=== PATIENT | male | born 1985 | race Caucasian/White ===

== ENCOUNTER → 2019-12-31 | Outpatient (CLI) | payer MEDICAID ==
[~2019-12-31] MED LIST: HYDR-826 PO; LEVO150T5 PO
[2019-12-31 09:32] LABS: BASOPHILS # (AUTO) 0.04 x10^3/uL (0-0.1); BASOPHILS % (AUTO) 1 % (0-1); EOSINOPHILS # (AUTO) 0.69 x10^3/uL (0-0.4); EOSINOPHILS % (AUTO) 9 % (1-7); LYMPHOCYTES % (AUTO) 22 % (22-44); MD NO; MEAN CORPUSCULAR HEMOGLOBIN 30.7 pg (27.5-34.5); MEAN CORPUSCULAR HGB CONC 32.9 g/dL (33.2-36.2); MEAN CORPUSCULAR VOLUME 93.3 fL (81-97); MONOCYTES # (AUTO) 0.47 x10^3/uL (0.2-0.8); MONOCYTES % (AUTO) 6 % (2-9); NEUTROPHILS # (AUTO) 4.56 x10^3/uL (1.8-6.8); NEUTROPHILS % (AUTO) 62 % (42-75); PLATELET COUNT 228 x10^3/uL (130-400); RED BLOOD COUNT 5.07 x10^6/uL (4.38-5.82)
[2019-12-31 09:40] LABS: INTERNATIONAL NORMALIZED RATIO 0.95 (0.93-1.1); PROTHROMBIN TIME 9.8 Seconds (9.6-11.5)
[2019-12-31 09:42] LABS: ANION GAP 4 mmol/L (5-15); CALCIUM 9.2 mg/dL (8.5-10.1); CHLORIDE 108 mmol/L (98-107); CREATININE 1.58 mg/dL (0.7-1.3)
[2019-12-31 09:45] LABS: MICROSCOPIC INDICATED
== END | disposition home or self-care (01) ==
LOC: STAR 07:55
PROVIDERS: ATTEND Urology
DX: Z01.812 Encounter for preprocedural laboratory examination (principal); Z20.828 Contact with and (suspected) exposure to other viral communicable diseases; N20.0 Calculus of kidney
CPT/HCPCS: 36415; 80048; 81001; 85025; 85610; 85730; 87086; 87635; 93005

== ENCOUNTER 2020-01-05 09:29 | Day surgery (SDC) | payer MEDICAID ==
[~2020-01-05] VITALS: Ht 180.3 cm; Wt 110.0 kg
[2020-01-05] MEDS ORDERED: MIDAZOLAM 1 MG/ML, 2ML ONE (09:31)
[2020-01-05] MEDS ORDERED: FENTANYL PF 250 MCG/5ML ONE (09:32)
[2020-01-05] MEDS ORDERED: GLYCOPYRROLATE 0.2MG/1ML, 5ML ONE (09:33)
[2020-01-05] MEDS ORDERED: PROPOFOL 10 MG/ML, 20ML ONE (09:33)
[2020-01-05] MEDS ORDERED: CEFAZOLIN 1,000 MG ONE (09:33)
[2020-01-05] MEDS ORDERED: NEOSTIGMINE 1 MG/ML, 10ML ONE (09:33)
[2020-01-05] MEDS ORDERED: KETOROLAC 30 MG/1 ML ONE (09:33)
[2020-01-05] MEDS ORDERED: CHLORHEXIDINE 15 ML UDC MM STA (10:35)
[2020-01-05] MEDS ORDERED: LACTATED RINGERS 1,000 ML IV SCH (10:35)
[2020-01-05 10:36] VITALS: BP 122/91
[2020-01-05] MEDS ORDERED: ROCURONIUM 10 MG/ML,10ML ONE (10:52)
[2020-01-05] MEDS ORDERED: hydrALAzine 20 MG/ML, 1ML IV PRN (11:00)
[2020-01-05] MEDS ORDERED: morphine SULFATE 10 MG/ML, 1ML IVPush PRN (11:00)
[2020-01-05] MEDS ORDERED: HYDROmorphone 1 MG/ML, 1ML INJ IVPush PRN (11:00)
[2020-01-05] MEDS ORDERED: ONDANSETRON 2MG/ML, 2ML IVPush PRN (11:00)
[2020-01-05] MEDS ORDERED: OXYcodone 5 MG/5 ML ORAL.SOL UDC PO PRN (11:00)
[2020-01-05] MEDS ORDERED: ACETAMINOPHEN 325 MG TABLET PO PRN (11:00)
[2020-01-05] MEDS ORDERED: MEPERIDINE/PF 25MG/0.5ML IVPush PRN (11:00)
[2020-01-05] MEDS ORDERED: LABETALOL 5MG/ML, 20ML IV PRN (11:00)
[2020-01-05] MEDS ORDERED: FENTANYL PF 100 MCG/2ML ONE (13:25)
[2020-01-05] MEDS ORDERED: OXYcodone 5 MG/5 ML ORAL.SOL UDC ONE (13:25)
[2020-01-05] MEDS ORDERED: ACETAMINOPHEN 650 MG/20.3 ML UDC ONE (13:26)
[2020-01-05] MEDS: FENTANYL PF 100 MCG/2ML IV PRN ×2 (13:27→13:35)
[2020-01-06] MEDS ORDERED: LEVOTHYROXINE 150 MCG TABLET PO SCH (06:00)
== END 2020-01-05 15:10 | disposition home or self-care (01) ==
LOC: OUT 09:29
PROVIDERS: ATTEND Urology
DX: N20.2 Calculus of kidney with calculus of ureter (principal); E03.9 Hypothyroidism, unspecified; Z88.0 Allergy status to penicillin; Z79.899 Other long term (current) drug therapy; Z87.891 Personal history of nicotine dependence; Z82.49 Family history of ischemic heart disease and other diseases of the circulatory system
CPT/HCPCS: 50590; 52352; 82360; 88300; C1769; J0690; J2250; J2704; J2710; J3010; J7120; J1885